=== PATIENT | female | born 1995 | race Caucasian/White ===

== ENCOUNTER 2022-09-17 16:53 | Emergency (ER) | payer BC, SELFPAY ==
[2022-09-17 17:09] VITALS: BP 157/75; PULSE 102; RESP 16; TEMP 37; O2SAT 99
--- NOTE | 2022-09-17 17:11 | ED.LOWEXIN ---
HPI - Extremity Injury (Lower) General Chief Complaint: Extremity Injury, Lower Stated Complaint: swollen left leg Source: patient Mode of arrival: ambulatory Limitations: no limitations History of Present Illness HPI Narrative: 27-year-old female presented for complaint of left lower leg swelling today. She denies significant pain, redness, numbness, tingling, weakness of the extremity. She has a normal gait. No recent travel or sedentary activity. Patient has IUD in place. Non smoker. Denies cp, palpitations, sob, dizziness, n/v/d/f/c. Related Data Allergies Allergy/AdvReac Type Severity Reaction Status Date / Time No Known Allergies Allergy Verified 09/17/22 17:12 Review of Systems Review of Systems: CONSTITUTIONAL: Denies body aches, fever, chills EYES: Denies visual changes ENT: Denies rhinorrhea, congestion CARDIOVASCULAR: Denies chest pain, palpitations, or edema. RESPIRATORY: Denies cough or dyspnea. GASTROINTESTINAL: Denies abdominal pain, nausea, vomiting, or diarrhea. SKIN: Denies rash, itching, or wounds. MUSCULOSKELETAL: Reports LLE swelling. Denies back pain, joint pain, or myalgia. NEUROLOGIC: Denies headache, numbness, tingling, or weakness. PSYCH: Denies depression or anxiety. All systems reviewed & are unremarkable except as noted in HPI and below PMFSH Comments At time of signature, I have reviewed and agree with nursing past medical, surgical, social and family history unless otherwise noted. Please see nursing chart for further information. There is no relevant family history pertinent to the presenting complaint Exam Narrative: GENERAL: Well-appearing, and in no acute distress. HEAD: Normocephalic, atraumatic. EYES: conjunctivae clear NECK: Supple. CHEST: Speaks in full sentences. No respiratory distress. HEART: Regular rate and rhythm. Normal and equal peripheral pulses. EXTREMITIES: LLE with 2+ pitting ankle edema. No erythema or discoloration. LLE has normal strength and sensation, normal range of motion. No ecchymosis, No calf tenderness. No open wounds, or obvious deformity; alignment normal, pulse palpable and equal bilaterally, skin warm, dry, pink. Capillary refill less than 3 seconds. SKIN: Warm, dry, no rash. NEURO: Alert and oriented x3. PSYCH: Normal mood and affect Course Course Emergency Course: Patient is aware of diagnosis, understands and agrees to treatment plan. Anticipatory guidance given. Patient agrees to follow-up as directed and is aware of reasons to seek care at the emergency department. Portions of this record may have been created with voice recognition software Level of Care: Express Care Visit Vital Signs Vital signs: Vital Signs Temperature 98.6 F 09/17/22 17:09 Pulse Rate 102 H 09/17/22 17:09 Respiratory Rate 16 09/17/22 17:09 Blood Pressure 157/75 H 09/17/22 17:09 Pulse Oximetry 99 09/17/22 17:09 Oxygen Delivery Room Air 09/17/22 17:09 Temperature 98.6 F 09/17/22 17:09 Pulse Rate 102 H 09/17/22 17:09 Respiratory Rate 16 09/17/22 17:09 Blood Pressure 157/75 H 09/17/22 17:09 Pulse Oximetry 99 09/17/22 17:09 Oxygen Delivery Room Air 09/17/22 17:09 Reviewed Transfer Transfered to: [facility] Transportation: Other (Private vehicle) Transfer rationale: Pt is agreeable to transfer. Requests transfer to [facility] via private vehicle. Risks of transportation reviewed with pt including injury, worsening of condition and . v/u. will be driving pt; Report called to hospital, spoke with Sana KOHLER; Dr Drew, accepting physician. Pt is in stable condition at time of transfer. Advised to remain NPO and go directly to the hospital. MDM - Extremity Injury (Lower) MDM Narrative Medical decision making narrative: Discussed physical exam findings. We discussed possible etiologies of patient's cc. She is aware we cannot r/o dvt at this facility. Agreeable to transfer, requests [facility]
== END 2022-09-17 17:24 | disposition short-term general hospital (02) ==
PROVIDERS: Emergency Provider Nurse Practitioner Family; PCP Family Medicine
DX: M79.89 Other specified soft tissue disorders (principal); N80.9 Endometriosis, unspecified
CPT/HCPCS: 99213; G0463